=== PATIENT | male | born 1960 | race Caucasian/White ===

== ENCOUNTER 2018-03-16 08:07 | Emergency (ER) | payer BC ==
[2018-03-16 08:32] VITALS: BP 146/96
--- NOTE | 2018-03-16 08:58 | UC ---
Respiratory Complaint HPI - HPI Summary HPI Summary: The patient is a 57-year-old male with a one-week history of progressively worsening cough chest tightness and myalgias. He denies any high fever. He has felt feverish at times. He has had chills. He has had no nausea vomiting or diarrhea. His cough worsens with exertion and cold weather. He has left ear pain. - History of Current Complaint Chief Complaint: UCGeneralIllness Stated Complaint: COUGH,ST,CHEST CONGESTION,LFT EAR PAIN Time Seen by Provider: 03/16/18 08:47 Hx Obtained From: Patient Onset/Duration: Gradual Onset Timing: Constant Severity Initially: Mild Severity Currently: Moderate Pain Intensity: 4 Pain Scale Used: 0-10 Numeric Character: Cough: Productive Aggravating Factors: Exertion, Deep Breaths, Recumbent Position Alleviating Factors: Nothing Associated Signs And Symptoms: Positive: Fever - reji, Chills, Nasal Congestion - Allergies/Home Medications Allergies/Adverse Reactions: Allergies Allergy/AdvReac Type Severity Reaction Status Date / Time contrast dye Allergy Severe Anaphylatic Uncoded 03/16/18 08:32 Shock Home Medications: Home Medications amLODIPine TAB* [Norvasc 5 mg TAB*] 5 mg PO DAILY 03/16/18 [History Confirmed ] PMH/Surg Hx/FS Hx/Imm Hx Previously Healthy: Yes Cardiovascular History: Hypertension - Surgical History Surgical History: Yes Surgery Procedure, Year, and Place: spinal fusion - Family History Known Family History: Positive: Hypertension - Social History Alcohol Use: None Substance Use Type: None Smoking Status (MU): Heavy Every Day Tobacco Smoker Review of Systems All Other Systems Reviewed And Are Negative: Yes Constitutional: Positive: Negative Skin: Positive: Negative Eyes: Positive: Negative ENT: Positive: Ear Ache, Nasal Discharge, Sinus Congestion Respiratory: Positive: Cough Cardiovascular: Positive: Negative Gastrointestinal: Positive: Negative Genitourinary: Positive: Negative Motor: Positive: Negative Neurovascular: Positive: Negative Musculoskeletal: Positive: Myalgia Neurological: Positive: Negative Psychological: Positive: Negative Physical Exam Triage Information Reviewed: Yes Appearance: Well-Appearing, No Pain Distress, Well-Nourished Vital Signs: Initial Vital Signs Temp 98.0 F 03/16/18 08:28 Pulse 73 03/16/18 08:28 Resp 18 03/16/18 08:28 BP 146/96 03/16/18 08:28 Pulse Ox 99 03/16/18 08:28 Vital Signs Reviewed: Yes Eyes: Positive: Conjunctiva Clear ENT: Positive: Hearing grossly normal, Nasal congestion, TM bulging - L, Uvula midline. Negative: Nasal drainage, Tonsillar swelling, Tonsillar exudate, Trismus, Muffled voice, Hoarse voice, Dental tenderness, Sinus tenderness Neck: Positive: Supple, Nontender, No Lymphadenopathy Respiratory: Positive: Lungs clear, Normal breath sounds, No respiratory distress, No accessory muscle use Cardiovascular: Positive: RRR, No Murmur Musculoskeletal: Positive: ROM Intact, No Edema Neurological: Positive: Alert Psychological Exam: Normal Skin Exam: Normal UC Diagnostic Evaluation - Laboratory O2 Sat by Pulse Oximetry: 99 - normal/not hypoxic - Radiology Radiology Interpretation Completed By: Radiologist Summary of Radiographic Findings: stigmata of copd Respiratory Course/Dx - Differential Dx/Diagnosis Provider Diagnoses: acute bronchitis. left serous om Discharge - Sign-Out/Discharge Documenting (check all that apply): Patient Departure All imaging exams completed and their final reports reviewed: Yes - Discharge Plan Condition: Stable Disposition: HOME Prescriptions: Amoxicillin PO (*) [Amoxicillin 875 MG (*)] 875 mg PO BID #20 tab Benzonatate CAP* [Tessalon CAP*] 100 - 200 mg PO TID PRN #28 cap PRN Reason: Cough Fluticasone NASAL SPRAY 50MCG* [Flonase NASAL SPRAY 50MCG*] 2 spray BOTH NARES BID #1 btl Patient Education Materials: Acute Bronchitis (ED), Serous Otitis Media (ED) Referrals: No Primary Care Phys,NOPCP [Primary Care Provider] - Additional Instructions: see list for local MDs recheck in 4-5 days if not improved BP recheck in 1-2 mos - Billing Disposition and Condition Condition: STABLE Disposition: Home
== END 2018-03-16 09:27 | disposition home or self-care (01) ==
LOC: UCCORT 08:07
DX: J20.9 Acute bronchitis, unspecified (principal); H65.92 Unspecified nonsuppurative otitis media, left ear; M79.10 Myalgia, unspecified site; I10 Essential (primary) hypertension; F17.200 Nicotine dependence, unspecified, uncomplicated; Z91.041 Radiographic dye allergy status; Z79.899 Other long term (current) drug therapy
CPT/HCPCS: 71046; 99202; G0463

== ENCOUNTER 2019-07-01 08:17 | Day surgery (SDC) | payer BC, OTHER ==
[~2019-07-01 08:17] MED LIST: Buffered Lidocaine 1% SYRIN* 1 ML/SYRINGE INTRADERM ONE; Famotidine IV* 10 MG/ML 2 ML (20 mg) IV ONE; Lactated Ringers 1000 ML Bag* 1,000 ML IV SCH
[2019-07-01] MEDS ORDERED: ceFAZolin 2 GM PREMIX in ORs 2 GM/50 ML BAG ONE (08:50)
[2019-07-01] MEDS ORDERED: Famotidine IV* 10 MG/ML 2 ML (20 mg) ONE (08:50)
[2019-07-01] MEDS ORDERED: Midazolam* 1 MG/ML 5 ML VIAL (5 MG) ONE (10:01)
[2019-07-01] MEDS ORDERED: Bupivacaine 0.25% SDV* 30 ML ONE (10:24)
[2019-07-01] MEDS ORDERED: Lidocaine 1% w EPI 1:100,000* MDV 20 ML VIAL ONE (10:24)
[2019-07-01] MEDS ORDERED: fentaNYL* 50 MCG/ML 2 ML VIAL (100 MCG VIAL) ONE (10:48)
[2019-07-01] MEDS ORDERED: HYDROmorphone INJ1* 1 MG/ML SYRINGE ONE ×2 (12:04→13:40)
[2019-07-01] MEDS ORDERED: HYDROcodone/ACETAMIN 5-325 MG* 1 TAB PO PRN (12:59)
[2019-07-01] MEDS ORDERED: Naloxone* 0.4 MG/ML 1 ML VIAL IV PRN (12:59)
[2019-07-01] MEDS ORDERED: Ondansetron INJ* 2 MG/ML VIAL ONE (13:14)
[2019-07-01] MEDS ORDERED: EPHEDrine (Pressors)* 50 MG/ML VIAL ONE (13:14)
[2019-07-01] MEDS ORDERED: Ketorolac INJ* 30 MG/ML 1 ML VIAL ONE (13:14)
[2019-07-01] MEDS ORDERED: Dexamethasone IV* 4 MG/ML 1 ML (4 MG) ONE (13:14)
[2019-07-01] MEDS ORDERED: Lidocaine 2% PF * 5 ML VIAL ONE (13:14)
[2019-07-01] MEDS ORDERED: Propofol* 10 MG/ML 20 ML BTL ONE (13:14)
[2019-07-01] MEDS ORDERED: HYDROcodone/ACETAMIN 5-325 MG* 1 TAB ONE (13:41)
[2019-07-01] MEDS: HYDROmorphone INJ1* 1 MG/ML SYRINGE IV PRN ×5 (13:43→15:45)
[2019-07-01 16:04] VITALS: BP 128/79
--- NOTE | 2019-07-02 13:58 | OP ---
DATE OF OPERATION: 07/01/19 [facility] DATE OF : 62 SURGEON: Ede Daniels MD INTERNET DAT[employer] SPECIALIST: RACHEL Dickens. An therapy assistant was needed for the procedure to aid in positioning of the arm and retraction. ANESTHESIOLOGIST: Dr. Encinas. ANESTHESIA: General. PRE-OP DIAGNOSIS: Right stage 3 SLAC wrist, status post failed scapholunate ligament reconstruction. POST-OP DIAGNOSIS: Right stage 3 SLAC wrist, status post failed scapholunate ligament reconstruction. OPERATIVE PROCEDURE: 1. Right wrist scaphoid excision. 2. Right wrist four-corner intercarpal fusion with autogenous distal radius bone grafting. 3. Right wrist posterior interosseous nerve neurectomy. 4. Removal of deep implants (suture anchors). INDICATIONS: Mr. Irvin underwent a scapholunate ligament reconstruction and it failed, and he had a significant intercarpal instability, and it has gone on to a very aggressive SLAC wrist. It is very symptomatic with a lot of dorsal synovitis. We talked about treatment options. He had elected to proceed with a scaphoid excision and four-corner fusion. ESTIMATED BLOOD LOSS: 5 mL. COMPLICATIONS: None. FINDINGS: See above and below. DESCRIPTION OF PROCEDURE: Mr. Irvin was seen in the preoperative holding area. The correct site, side, and procedures were identified. We came back to the operating room where the arm was prepped and draped in the usual fashion and a time- out was performed. The arm was exsanguinated with the Esmarch and the tourniquet was inflated. I reopened his prior longitudinal midline incision. Dissection was carried down longitudinally and full-thickness flaps were raised off of the extensor retinaculum. The extensor retinaculum was released over the fourth dorsal compartment. A third dorsal compartment was released and the EPL tendon was transposed. The second dorsal compartment was likewise released. I also released the fifth dorsal compartment as the tendons were all retracted out of the way with the self-retainer as were the retinacular flaps. I then made a capsulotomy and raised a distally based capsular U flap to expose the dorsum of the carpus. There was a lot of synovitis. After I had raised off my capsular U flap and had the carpus exposed, I could see some suture anchors, there was 1 in the proximal row and other distally for the scaphoid. These were removed. The suture tape and grafts were all removed. After I removed the implants, I excised the scaphoid in piecemeal fashion until it was completely excised. The distal aspect of the capitate, proximal pole of the capitate was completely arthritic. I repaired the end of my bone with the rongeur and a 2.4 mm vicky. Once I had bony edges repaired, I harvested my distal radius bone graft by making the dorsal corticotomy and opened up a cortical window and using the curette, I harvested down to distal radius metaphyseal bone graft, this was packed into the fusion site. I then reduced my carpus and pinned in the place with multiple 0.062 K-wires. I then brought in my TriMed Fusion Cup Plate and used the reamer to take off some of the dorsal carpus, so that the plate was sitting, flushed and a little recessed underneath the bone. I pinned the plate into place. I then drilled and placed my screws, starting to place my first screw in the lunate and then up into the hamate and then working at 180-degree angles to go around and place all of the screws. I brought in my mini C-arm fluoroscopy, I decided to switch couple that were in the hamate and pin those a little bit more distally, also redirected two in the lunate. At this point, everything was looking very good. I final tightened all of the screws again working at 180-degree angles. The alignment generally looked good. The final fluoroscopic imaging showed just a few degrees of extension of the lunate that had been noticed on prior mini C-arm fluoroscopic imaging as I had gone through putting the fixation in place, but it was very slight and it clearly clinically looked good, so I decided not to change the position of the lunate as I had excellent fixation, what looked like pretty good compression all through the fusion. The wound was irrigated out. The capsule was closed with 4-0 PDS suture. The fifth and third dorsal compartment tendons were left transposed. The retinaculum was closed with 3-0 PDS suture. The skin was closed with 4-0 nylon suture. 0.25% Marcaine was infiltrated all about the area. The wounds were dressed with Xeroform, 4x4, sterile Webril, and then a plaster short-arm splint with dorsal and palmar slabs were applied He was taken to the recovery room in stable condition. [id number]/[facility] #: [id number] [facility]ENTERZuri
== END 2019-07-01 16:04 | disposition home or self-care (01) ==
LOC: OR 08:17
PROVIDERS: ATTEND Orthopaedic Surgery Hand Surgery
DX: M19.131 Post-traumatic osteoarthritis, right wrist (principal); S63.51 Sprain of carpal (joint); M25.531 Pain in right wrist; I10 Essential (primary) hypertension; Z98.890 Other specified postprocedural states; F17.210 Nicotine dependence, cigarettes, uncomplicated; Z98.1 Arthrodesis status; Z91.030 Bee allergy status; Z91.041 Radiographic dye allergy status; X58.XXXS Exposure to other specified factors, sequela
CPT/HCPCS: 76000; 88300; 88304; 88311; C1713; C1776; J0690; J1100; J1170; J1885; J2250; J2405; J2704; J3010; J3490